=== PATIENT | female | born 1995 | race Caucasian/White ===

== ENCOUNTER → 2017-11-23 | Outpatient (CLI) | payer BC | END | disposition home or self-care (01) | LOC: LAB.O 13:21 | PROVIDERS: ATTEND Internal Medicine | DX: E03.9 Hypothyroidism, unspecified (principal) ==

== ENCOUNTER → 2018-02-25 | Outpatient (CLI) | payer BC | LOC: LAB.O 15:26 | PROVIDERS: ATTEND Internal Medicine | DX: E03.9 Hypothyroidism, unspecified (principal) ==

== ENCOUNTER → 2020-08-11 | Outpatient (CLI) | payer BC ==
--- NOTE | 2020-08-12 12:08 | RAD ---
EXAM: Chest,2 Views CLINICAL HISTORY: sob COMPARISON STUDY: None TECHNICAL: Posteroanterior (PA) and lateral views of the chest were performed. FINDINGS: No consolidations, effusions, or edema. The heart size is not enlarged. No acute osseous abnormality. IMPRESSION: NORMAL CHEST XRAY. Electronically signed by: Juan Jennings MD 08/12/2020 12:06 PM CDT
== END ==
LOC: RAD 12:38
PROVIDERS: ATTEND Internal Medicine
DX: R06.02 Shortness of breath (principal)